=== PATIENT | male | born 1985 | race Caucasian/White ===

== ENCOUNTER 2024-11-23 08:57 | Outpatient (CLI) | payer OTHER, SELFPAY ==
--- NOTE | 2024-11-23 09:15 | MR_ITS ---
EXAM: MRI of the RIGHT KNEE, without contrast CLINICAL HISTORY: Ongoing right knee pain. History of previous right knee surgery. COMPARISONS: Plain radiographs 11/13/2024. Plain radiographs 05/11/2019. MRI of the right thigh 06/03/2019. TECHNICAL: MR sequences of the right knee: sagittals: PD, PDFS coronals: PD, STIR axials: PD, T2 FS CONTRAST: None SEDATION: None FINDINGS: Bones: No fracture or destructive osseous lesion. 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 Retinacula: The medial and lateral retinacula are intact. Fat pads: The infrapatellar, quadriceps, and prefemoral fat pads are unremarkable. Knee joint: Effusion: Small to moderate right knee joint effusion. Popliteal cyst: Moderate to large popliteal cyst. Intra-articular bodies: None. Posteromedial corner: Unremarkable. Medial compartment: Medial meniscus: Complex tear from the body through posterior horn/posterior root junction of the medial meniscus with substantial medial meniscal extrusion. Evaluation is compromised by markedly suboptimal [id number] secondary to patient body habitus (a dedicated knee coil was not to be used). Cartilage: Grade II to III chondromalacia is suspected over the weight-bearing portion of the medial femoral condyle although evaluation is markedly compromised by suboptimal [id number]. Lateral compartment: Lateral meniscus: There is no definitive evidence of lateral meniscal tear although evaluation is markedly compromised. Cartilage: Grade II to III chondromalacia is suspected over the weight-bearing portion of the lateral femoral condyle although evaluation is markedly compromised by suboptimal [id number]. Ligaments: Anterior cruciate ligament: Intact. Posterior cruciate ligament: Intact. Medial collateral ligament: Intact. Posterior oblique ligament: Intact. Fibular collateral ligament: Intact. Posterolateral corner: The distal biceps femoris tendon, iliotibial band, popliteus tendon, popliteus muscle, popliteofibular ligament, and arcuate ligament are intact. Extensor mechanism: Patellar tendon: Intact. Quadriceps tendon: Surgical changes status post quadriceps tendon repair without evidence of recurrent rupture on the images provided. IMPRESSION: 1. It must be noted that evaluation is substantially compromised by markedly suboptimal [id number]-of-ojqus secondary to patient body habitus (a dedicated knee coil was not able to be used). 2. Complex tear from the body through posterior horn/posterior root junction of the medial meniscus with substantial medial meniscal extrusion. 3. 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 4. Grade II to III chondromalacia is suspected over the weight-bearing portions of the medial and lateral femoral condyles although it must be noted that evaluation is markedly compromised by markedly suboptimal [id number]. 5. Small to moderate right knee joint effusion. Moderate to large popliteal cyst. 6. Surgical changes status post quadriceps tendon repair without evidence of recurrent rupture on the images provided. Correlate with surgical history. RCB Electronically signed on 11/23/2024 1:01:00 PM by Rex Contreras M.D.
== END 2024-11-23 08:58 | disposition home or self-care (01) ==
LOC: MRI 08:58
PROVIDERS: Visit Provider Physician Assistant
DX: M25.561 Pain in right knee (principal); S83.231A Complex tear of medial meniscus, current injury, right knee, initial encounter; M22.41 Chondromalacia patellae, right knee; M25.461 Effusion, right knee; M71.21 Synovial cyst of popliteal space [Baker], right knee; S89.91XA Unspecified injury of right lower leg, initial encounter
CPT/HCPCS: 73721

== ENCOUNTER 2025-04-06 08:03 | Outpatient (CLI) | payer OTHER, SELFPAY | END 2025-04-06 08:04 | disposition home or self-care (01) | LOC: NFLDREF 04-10 16:34 | PROVIDERS: Visit Provider Family Medicine | DX: R79.89 Other specified abnormal findings of blood chemistry (principal); E66.01 Morbid (severe) obesity due to excess calories; Z00.00 Encounter for general adult medical examination without abnormal findings; G47.30 Sleep apnea, unspecified; E10.9 Type 1 diabetes mellitus without complications; R53.83 Other fatigue; Z68.43 Body mass index [BMI] 50.0-59.9, adult | CPT/HCPCS: 80053; 80061; 82306; 84270; 84402; 84403; 84443 ==

== ENCOUNTER 2025-04-12 11:06 | Outpatient (CLI) | payer OTHER, SELFPAY ==
--- NOTE | 2025-04-12 11:15 | CRLHL7_ITS ---
For Patients: As a result of the Century Cures Act, medical imaging exams and procedure reports are released immediately into your electronic medical record. You may view this report before your referring provider. If you have questions, please contact your health care provider. INDICATION: Other specified abnormal findings of blood chemicals. COMPARISON: none TECHNIQUE: Real time chen scale imaging and color Doppler analysis was performed of the right upper quadrant. FINDINGS: Liver measures 20.1 cm and has diffusely increased echotexture with focal fatty sparing adjacent to the gallbladder. There is a normal appearance of the hepatic IVC and proximal abdominal aorta. There is no evidence of ascites. The gallbladder is of normal size and there is no evidence of intraluminal stones or sludge. The gallbladder wall measures 2 mm in thickness. The common bile duct is of normal size and measures 3 mm in diameter at the level of the vipul hepatis. The pancreas appears normal. There is no evidence of a stone or hydronephrosis within the right kidney. The right kidney measures 14.1 cm in length. IMPRESSION: Hepatomegaly with diffuse hepatic steatosis and focal fatty areas of sparing. Normal gallbladder. Dictated by Alvin Romano MD @ 04/12/2025 2:13:33 PM (Electronically Signed)
== END 2025-04-12 11:07 | disposition home or self-care (01) ==
LOC: US 11:07
PROVIDERS: PCP Family Medicine; Visit Provider Family Medicine
DX: R79.89 Other specified abnormal findings of blood chemistry (principal); R16.0 Hepatomegaly, not elsewhere classified; K76.0 Fatty (change of) liver, not elsewhere classified
CPT/HCPCS: 76705